=== PATIENT | male | born 2005 | race Two or more races ===

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

== ENCOUNTER 2025-03-07 15:16 | Emergency (ER) | payer OTHER ==
[2025-03-07 15:41] VITALS: BP 136/78; PULSE 71; RESP 18; TEMP 98.6; BMI 35.3
== END 2025-03-07 19:02 | disposition home or self-care (01) ==
LOC: FER 15:16
DX: S92.354A Nondisplaced fracture of fifth metatarsal bone, right foot, initial encounter for closed fracture (principal); S80.212A Abrasion, left knee, initial encounter; W01.0XXA Fall on same level from slipping, tripping and stumbling without subsequent striking against object, initial encounter
CPT/HCPCS: 73610-TC-RT-FY; 73630-TC-RT-FY; 99283-25